=== PATIENT | female | born 1970 | race Caucasian/White ===

== ENCOUNTER → 2016-08-14 | Outpatient (CLI) | payer BC | LOC: MRI 12:13 | DX: M54.5 Low back pain (principal); R91.1 Solitary pulmonary nodule; R91.8 Other nonspecific abnormal finding of lung field | CPT/HCPCS: 71260; 72148; J7050; Q9962 ==

== ENCOUNTER → 2021-05-16 | Outpatient (CLI) | payer MEDICARE | LOC: HEART 5 05-14 09:30 | DX: I51.7 Cardiomegaly (principal); I51.89 Other ill-defined heart diseases | CPT/HCPCS: 93306 ==